=== PATIENT | female | born 1945 | race Hispanic/Latino ===

== ENCOUNTER 2017-02-03 19:29 | Observation (INO) | payer MEDICARE, BC ==
[2017-02-03 19:40] VITALS: BMI 23.9
--- NOTE | 2017-02-03 20:31 | ED PDOC ---
Arrival/HPI - General Chief Complaint: GI Problem Time Seen by Provider: 02/03/17 19:36 Historian: Patient - History of Present Illness Narrative History of Present Illness (Text): 02/03/17 19:40 Carlee Meyer is a 71 year old female, whose past medical history includes diabetes, hypothyroidism, colon cancer, colon resection, diverticulitis, and an appendectomy, who presents to the emergency department complaining of intermittent nausea, vomiting, diarrhea, and lower abdominal discomfort for 2 days. Patient states that her symptoms are similar to a previous episode of diverticulitis. Patient also states that she has a subjective fever and occasional chills. Patient indicates that she has a painful mass to her right hip which she has had for some time. Patient was told by her PMD that if pain in the mass persists, she would have to be evaluated further. Patient denies any history of trauma, back pain, chest pain, shortness of breath, or any other complaint at this time. PMD: Dr. Tanner Time/Duration: < week Symptom Onset: Gradual Symptom Course: Unchanged Severity Level: Mild Activities at Onset: Light Context: Home Past Medical History - Provider Review Nursing Documentation Reviewed: Yes - Infectious Disease Hx of Infectious Diseases: None - Reproductive Menopause: Yes - Cardiac Hx Pacemaker: No - Pulmonary Hx Respiratory Disorders: No - Neurological Hx Paralysis: No - HEENT Hx HEENT Disorder: Yes Hx Cataracts: Yes - Renal Hx Renal Disorder: No - Endocrine/Metabolic Hx Diabetes Mellitus Type 1: Yes Hx Hypothyroidism: Yes - Hematological/Oncological Hx Cancer: Yes (colon ca with partial colectomy) - Integumentary Hx Dermatological Disorder: No - Musculoskeletal/Rheumatological Hx Falls: No - Gastrointestinal Hx Diverticulitis: Yes Other/Comment: Colon CA - Genitourinary/Gynecological Hx Genitourinary Disorders: Yes Hx Urinary Tract Infection: Yes - Psychiatric Hx Emotional Abuse: No Hx Physical Abuse: No Hx Substance Use: No - Surgical History Hx Appendectomy: Yes Hx Cataract Extraction: Yes Hx Cholecystectomy: Yes Hx Joint Replacement: Yes (hip replacement) Other/Comment: Colonoscopy - Anesthesia Hx Anesthesia: Yes Hx Anesthesia Reactions: No Hx Malignant Hyperthermia: No - Suicidal Assessment Feels Threatened In Home Enviroment: No Family/Social History - Physician Review Nursing Documentation Reviewed: Yes Family/Social History: No Known Family HX Smoking Status: Light Smoker < 10 Cigarettes Daily Hx Alcohol Use: No Hx Substance Use: No Allergies/Home Meds Allergies/Adverse Reactions: Allergies moxifloxacin Allergy (Verified 03/05/16 19:56) ANAPHYLAXIS Home Medications: Home Meds Medication Instructions Recorded Confirmed Levothyroxine Sodium 0.05 mg PO QAM 09/25/14 02/03/17 Cholecalciferol (Vitamin D3) [Good 1 tab PO QWK 03/05/16 02/03/17 [facility] Vitamin Health D 90 mg] GlipiZIDE [Glucotrol] 5 mg PO BID 02/03/17 02/03/17 Insulin Detemir [Levemir] 15 unit SC DAILY 02/03/17 02/03/17 Metformin HCl [Glucophage] 1,000 mg PO BID 02/03/17 02/03/17 Promethazine HCl/Codeine 5 ml PO QID 02/03/17 02/03/17 [Prometh-Codein 6.25-10 mg/5 ml] Review of Systems - Physician Review All systems were reviewed & negative as marked: Yes - Review of Systems Constitutional: Fevers, Night Sweats Eyes: absent: Vision Changes ENT: absent: Hearing Changes Respiratory: absent: SOB, Cough Cardiovascular: absent: Chest Pain Gastrointestinal: Abdominal Pain (Lower abdominal pain), Diarrhea, Nausea, Vomiting Genitourinary Female: absent: Urine Output Changes Musculoskeletal: absent: Back Pain, Neck Pain Skin: absent: Rash, Pruritis Neurological: absent: Headache, Dizziness Endocrine: absent: Polyuria Hemo/Lymphatic: absent: Easy Bleeding Psychiatric: absent: Depression Physical Exam Vital Signs Reviewed: Yes Vital Signs Temp Pulse Resp BP Pulse Ox 02/03/17 20:30 99.1 F 02/03/17 19:30 97 H 16 137/82 98 Temperature: Afebrile Blood Pressure: Normal Pulse: Tachycardic Respiratory Rate: Normal Appearance: Positive for: Well-Appearing, Non-Toxic, Comfortable Pain Distress: None Mental Status: Positive for: Alert and Oriented X 3 - Systems Exam Head: Present: Atraumatic, Normocephalic Pupils: Present: PERRL Extroacular Muscles: Present: EOMI Conjunctiva: Present: Normal Mouth: Present: Moist Mucous Membranes Neck: Present: Normal Range of Motion Respiratory/Chest: Present: Clear to Auscultation, Good Air Exchange. No: Respiratory Distress, Accessory Muscle Use Cardiovascular: Present: Regular Rate and Rhythm, Normal S1, S2. No: Murmurs Abdomen: Present: Tenderness (Minimal tenderness to LLQ). No: Rebound, Guarding Back: Present: Normal Inspection Upper Extremity: Present: Normal ROM, Neurovascularly Intact Lower Extremity: Present: Normal ROM, Deformity (bony protuberance to Right hip with some questional palpable tenderness), Neurovascularly Intact Neurological: Present: GCS=15, CN II-XII Intact, Speech Normal Skin: Present: Other (No overlying skin erythema) Psychiatric: Present: Alert, Oriented x 3, Normal Insight, Normal Concentration Medical Decision Making ED Course and Treatment: 02/03/17 19:40 Impression: 71 year old female complaining of intermittent nausea, vomiting, diarrhea, and lower abdominal discomfort for 2 days. Plan: -- EKG -- Chest X-ray -- Abdomen and Pelvis CT w/ IV Contrast -- Right Hip CT w/o contrast -- Blood Culture -- Urine Culture and Urinalysis -- Labs -- Reassess and disposition Prior Visits: Notes and results from previous visits were reviewed. Patient last seen in the ED on 03/05/16 for 1 day duration of left lower abdominal pain. Patient was admitted to hospitalist for further evaluation. Progress Notes: 02/03/17 23:24 Reviewed radiology, CT Hip shows: 1. There has been little change from 03/05/2016. No interval soft tissue mass is identified. 2. Subcutaneous calcifications consistent with injection granulomata and mild subcutaneous edema lateral to the right hip. 3. Minimal sigmoid diverticulosis without diverticulitis. 4. Prosthetic left hip. CT Abdomen and Pelvis shows: 1. Resolution of proximal sigmoid diverticulitis since 03/05/2016. The remainder of the exam is similar. 2. Prosthetic left hip. 3. Status post cholecystectomy. 4. Status post right colectomy with ileocolic anastomosis in the proximal to mid transverse colon. 5. Minimal sigmoid diverticulosis without diverticulitis. 02/04/17 01:[address] Mirza, who is aware and agrees with plan. Accepts pt in to hospitalist service. Pt will go to [facility] observation for vomiting, diarrhea, abdominal pain, and leukocytosis. residential manager notified. - Lab Interpretations Lab Results: 02/03/17 20:16 02/03/17 20:16 Lab Results 02/03/17 21:39: Urine Color Yellow, Urine Appearance Clear, Urine pH 6.0, Ur Specific [place] >= 1.030, Urine Protein 100 H, Urine Glucose (UA) Negative, Urine Ketones Negative, Urine Blood Small H, Urine Nitrate Negative, Urine Bilirubin Negative, Urine Urobilinogen 0.2, Ur Leukocyte Esterase Negative, Urine RBC 1 - 3, Urine WBC 0 - 2, Ur Epithelial Cells 1 - 3 02/03/17 20:16: WBC 15.5 H D, RBC 5.25, Hgb 16.2 H, Hct 47.1, MCV 89.7, MCH 30.9 , MCHC 34.4, RDW 13.5, Plt Count 230, MPV 10.4 02/03/17 20:16: Sodium 139, Potassium 4.8, Chloride 96 L, Carbon Dioxide 30, Anion Gap 18, BUN 26 H, Creatinine 1.0, Est GFR ( Amer) > 60, Est GFR ( Non-Af Amer) 55, Random Glucose 154 H, Calcium 10.6 H, Total Bilirubin 0.9, AST 58 H, ALT 42, Alkaline Phosphatase 72, Total Protein 9.0 H, Albumin 5.0 H, Globulin 4.1, Albumin/Globulin Ratio 1.2, Lipase 481 H 02/03/17 20:16: PT 11.4, INR 1.06, APTT 23.5 L I have reviewed the lab results: Yes - RAD Interpretation Narrative RAD Interpretations (Text): 02/03/17 21:19 CXR- NO acute process CT Hip shows: Bones/joints: Prosthetic left hip in position. No fractures or destructive lesions. No dislocation. Soft tissues: Prominent subcutaneous calcifications in the right gluteal region. Mild subcutaneous edema lateral to the right hip. No soft tissue mass is seen. Bowel: Minimal sigmoid diverticulosis. No obstruction. No mucosal thickening. IMPRESSION: 1. There has been little change from 03/05/2016. No interval soft tissue mass is identified. 2. Subcutaneous calcifications consistent with injection granulomata and mild subcutaneous edema lateral to the right hip. 3. Minimal sigmoid diverticulosis without diverticulitis. 4. Prosthetic left hip. CT Abdomen and Pelvis shows: Lower thorax: Minimal bibasilar atelectasis or scar. ABDOMEN: Liver: Unremarkable. No mass. Gallbladder and bile ducts: Status post cholecystectomy. No ductal dilation. Pancreas: Unremarkable. No mass. No ductal dilation. Spleen: Unremarkable. No splenomegaly. Adrenals: Unremarkable. No mass. Kidneys and ureters: Unremarkable. No solid mass. No hydronephrosis. Stomach and bowel: Status post right colectomy with ileocolic anastomosis in the proximal to mid transverse colon. Minimal sigmoid diverticulosis without diverticulitis. No obstruction. Appendix: See above. PELVIS: Bladder: Unremarkable. No mass. Reproductive: Unremarkable as visualized. ABDOMEN and PELVIS: Intraperitoneal space: Unremarkable. No free air. No significant fluid collection. Bones/joints: Facet arthropathy of the lower lumbar spine. Prosthetic left hip. No acute fracture. No dislocation. Soft tissues: Subcutaneous calcifications consistent with injection granulomata in the gluteal regions. Vasculature: Unremarkable. No abdominal aortic aneurysm. Lymph nodes: Unremarkable. No enlarged lymph nodes. IMPRESSION: 1. Resolution of proximal sigmoid diverticulitis since 03/05/2016. The remainder of the exam is similar. 2. Prosthetic left hip. 3. Status post cholecystectomy. 4. Status post right colectomy with ileocolic anastomosis in the proximal to mid transverse colon. 5. Minimal sigmoid diverticulosis without diverticulitis. Radiology Orders: 02/03/17 20:06 ABD & PELVIS IV CONTRAST ONLY [CT] Stat 02/03/17 20:07 CHEST PORTABLE [RAD] Stat 02/03/17 20:10 HIP WITHOUT CONTRAST RIGHT [CT] Stat [place] Specialist: ED Physician, Radiologist - EKG Interpretation EKG Interpretation (Text): 02/03/17 21:20 EKG- NSR@ 93,NS T wave changes Interpreted by ED Physician: Yes Type: 12 lead EKG - Medication Orders Current Medication Orders: Discontinued Medications Famotidine (Pepcid) 20 mg IVP STAT STA Stop: 02/03/17 21:55 Last Admin: 02/03/17 22:13 Dose: 20 mg Sodium Chloride (Sodium Chloride 0.9%) 500 mls @ 500 mls/hr IV .Q1H STA Stop: 02/03/17 22:53 Last Admin: 02/03/17 22:14 Dose: 500 mls/hr Ceftriaxone Sodium (Rocephin 1 Gram Ivpb) 1 gm in 100 mls @ 200 mls/hr IV ONCE STA PRN Reason: Protocol Stop: 02/03/17 22:26 Last Admin: 02/03/17 22:13 Dose: 200 mls/hr Metronidazole (Flagyl) 500 mg in 100 mls @ 100 mls/hr IVPB STAT STA PRN Reason: Protocol Stop: 02/03/17 22:56 Last Admin: 02/03/17 23:35 Dose: 100 mls/hr Iohexol (Omnipaque 350 100 Ml) Confirm Administered Dose 350 mg .ROUTE .STK-MED ONE Stop: 02/03/17 22:45 Ondansetron HCl (Zofran Inj) 4 mg IVP ONCE ONE Stop: 02/03/17 21:55 Last Admin: 02/03/17 22:13 Dose: 4 mg Disposition/Present on Arrival - Present on Arrival Any Indicators Present on Arrival: No History of DVT/PE: No History of Uncontrolled Diabetes: No Urinary Catheter: No History of Decub. Ulcer: No History Surgical Site Infection Following: None - Disposition Have Diagnosis and Disposition been Completed?: Yes Diagnosis: Vomiting and diarrhea, Abdominal pain, Leukocytosis Disposition: HOSPITALIZED Disposition Time: 01:28 Patient Plan: Observation Patient Problems: Current Active Problems Problem Status Onset Abdominal pain Acute Leukocytosis Acute Vomiting and diarrhea Acute Condition: GOOD Referrals: Masood Tanner MD [Primary Care Provider] - Follow up with primary
[2017-02-03 20:34] LABS: HEMATOCRIT 47.1 % (36.0-48.0); MEAN CELL VOLUME 89.7 fL (80.0-105.0); MEAN CORPUSCULAR HEMOGLOBIN 30.9 pg (25.0-35.0); MEAN CORPUSCULAR HGB CONC 34.4 g/dl (31.0-37.0); MEAN PLATELET VOLUME 10.4 fl (7.0-11.0); RED CELL DISTRIBUTION WIDTH 13.5 % (11.5-14.5); WHITE BLOOD COUNT 15.5 10^3/ul (4.5-11.0)
[2017-02-03 20:47] LABS: ALB/GLOB RATIO 1.2 (1.1-1.8); ALKALINE PHOSPHATASE 72 U/L (38-133); ALT/SGPT 42 U/L (7-56); AST/SGOT 58 U/L (15-39); BILIRUBIN,TOTAL 0.9 mg/dL (0.2-1.3); BLOOD UREA NITROGEN 26 mg/dL (7-21); CALCIUM 10.6 mg/dL (8.4-10.5); CARBON DIOXIDE 30 mmol/L (21-33); CHLORIDE 96 mmol/L (98-107); GFR AFRICAN-AMERICAN > 60; GLUCOSE,RANDOM 154 mg/dL (70-110); LIPASE 481 U/L (23-300); POTASSIUM 4.8 mmol/L (3.6-5.0); SODIUM 139 mmol/L (132-148)
[2017-02-03 20:54] LABS: INR 1.06 (0.93-1.08); PARTIAL THROMBOPLASTIN TIME 23.5 Seconds (23.7-30.8)
[2017-02-03 21:51] LABS: URINE BILIRUBIN NEGATIVE (NEGATIVE); URINE BLOOD SMALL (NEGATIVE); URINE GLUCOSE (UA) NEGATIVE (NEGATIVE); URINE KETONE NEGATIVE (NEGATIVE); URINE LEUKOCYTE ESTERASE NEGATIVE Leu/uL (NEGATIVE); URINE PROTEIN 100 mg/dL (<30 mg/dL); URINE UROBILINOGEN 0.2 E.U./dL (<1 E.U./dL)
[2017-02-03] MEDS ORDERED: Sodium Chloride 0.9% 500 ML IV STA (21:54)
[2017-02-03] MEDS ORDERED: metroNIDAZOLE IV 500 mg/100 ml 500 MG/100 ML BAG IVPB STA (21:57)
[2017-02-03] MEDS ORDERED: cefTRIAXone 1 gm 1 GM/100 ML BAG IV STA (21:57)
[2017-02-03 22:02] LABS: URINE APPEARANCE CLEAR (CLEAR); URINE COLOR YELLOW (YELLOW)
[2017-02-03 22:10] LABS: URINE WBC 0 - 2 /hpf (0-6)
[2017-02-03] MEDS ORDERED: Iohexol 350 MG/100 ML VIAL ONE (22:44)
--- NOTE | 2017-02-04 01:51 | CP.PCM.HP ---
History of Present Illness - History of Present Illness History of Present Illness: CC: Nausea, vomiting and Diarrhea x 1 day HPI: 71 y/o female with a PMHx as listed below comes in to the ED with the complaint of nausea and nonbilious, nonbloody vomitus that began yesterday. She states this happened suddenly and was associated with a sharp stabbing pain around her umbilicus. She states her diarrhea is loose in caliber and yellow in appearance and she was having episodes of both diarrhea and vomiting concurrently. She mentions that she had a flare of diverticulitis about 2 weeks ago for which she was placed on po flagyl and augmentin, saw her GI doctor (Dr. Jimenez) and subsequently felt better. She also mentions having chills and and feeling lethargic today which prompted her to come in to the ED. She denies any complaints of chest pain, shortness of breath, dysuria, headache, light headedness or dizziness. She denies having anything out of the ordinary to eat recently, no recent travel or sick contacts. PMHx: Colon Ca s/p R hemicolectomy 2012 Hypothyroid DM Diverticulosis Allergies: Moxifloxacin - anaphylaxis Fam Hx: reviewed and noncontributory Soc Hx: 1/3ppd x 40yrs; denies etoh; lives at home next door to her sister Meds: recently completed a course of Flagyl 250mg po tid + Augmentin Synthroid 50mcg po daily Levemir 15u SQ hs Glucotrol 5mg po bid Present on Admission - Present on Admission Any Indicators Present on Admission: No Review of Systems - Review of Systems Review of Systems: As per HPI otherwise negative for a 10 point ROS Past Patient History - Infectious Disease Hx of Infectious Diseases: None - Past Social History Smoking Status: Light Smoker < 10 Cigarettes Daily Alcohol: None Drugs: Denies - CARDIAC Hx Pacemaker: No - PULMONARY Hx Respiratory Disorders: No - NEUROLOGICAL Hx Paralysis: No - HEENT Hx HEENT Problems: Yes Hx Cataracts: Yes - RENAL Hx Chronic Kidney Disease: No - ENDOCRINE/METABOLIC Hx Diabetes Mellitus Type 1: Yes Hx Hypothyroidism: Yes - HEMATOLOGICAL/ONCOLOGICAL Hx Cancer: Yes (colon ca with partial colectomy) - INTEGUMENTARY Hx Dermatological Problems: No - MUSCULOSKELETAL/RHEUMATOLOGICAL Hx Falls: No - GASTROINTESTINAL Hx Diverticulitis: Yes Other/Comment: Colon CA - GENITOURINARY/GYNECOLOGICAL Hx Genitourinary Disorders: Yes Hx Urinary Tract Infection: Yes - PSYCHIATRIC Hx Emotional Abuse: No Hx Physical Abuse: No Hx Substance Use: No - SURGICAL HISTORY Hx Appendectomy: Yes Hx Cataract Extraction: Yes Hx Cholecystectomy: Yes Hx Joint Replacement: Yes (hip replacement) Other/Comment: Colonoscopy - ANESTHESIA Hx Anesthesia: Yes Hx Anesthesia Reactions: No Hx Malignant Hyperthermia: No Meds Allergies/Adverse Reactions: Allergies Allergy/AdvReac Type Severity Reaction Status Date / Time moxifloxacin Allergy ANAPHYLAXIS Verified 03/05/16 19:56 Physical Exam - Constitutional Appears: Non-toxic, No Acute Distress - Head Exam Head Exam: ATRAUMATIC, NORMOCEPHALIC - Eye Exam Eye Exam: Normal appearance - ENT Exam ENT Exam: Mucous Membranes Dry - Respiratory Exam Respiratory Exam: Clear to Auscultation Bilateral, NORMAL BREATHING PATTERN. absent: Rales, Rhonchi, Wheezes - Cardiovascular Exam Cardiovascular Exam: REGULAR RHYTHM, +S1, +S2 - GI/Abdominal Exam GI & Abdominal Exam: Normal Bowel Sounds, Soft. absent: Guarding, Rebound, Tenderness Additional comments: old healed midline surgical scar - Rectal Exam Rectal Exam: Deferred - Extremities Exam Extremities exam: Positive for: normal inspection. Negative for: calf tenderness - Neurological Exam Neurological exam: Alert, Oriented x3 - Psychiatric Exam Psychiatric exam: Normal Affect, Normal Mood - Skin Skin Exam: Dry, Intact, Normal Color, Warm Results - Vital Signs Recent Vital Signs: Last Vital Signs Temp 99.1 F 02/03/17 20:30 Pulse 97 H 02/03/17 19:30 Resp 16 02/03/17 19:30 BP 137/82 02/03/17 19:30 Pulse Ox 98 02/03/17 19:30 - Labs Result Diagrams: 02/03/17 20:16 02/03/17 20:16 Labs: Laboratory Results - last 24 hr 02/03/17 02/03/17 02/03/17 20:16 20:16 20:16 WBC 15.5 H D RBC 5.25 Hgb 16.2 H Hct 47.1 MCV 89.7 MCH 30.9 MCHC 34.4 RDW 13.5 Plt Count 230 MPV 10.4 PT 11.4 INR 1.06 APTT 23.5 L Sodium 139 Potassium 4.8 Chloride 96 L Carbon Dioxide 30 Anion Gap 18 BUN 26 H Creatinine 1.0 Est GFR ( Amer) > 60 Est GFR (Non-Af Amer) 55 Random Glucose 154 H Calcium 10.6 H Total Bilirubin 0.9 AST 58 H ALT 42 Alkaline Phosphatase 72 Total Protein 9.0 H Albumin 5.0 H Globulin 4.1 Albumin/Globulin Ratio 1.2 Lipase 481 H Urine Color Urine Appearance Urine pH Ur Specific [place] Urine Protein Urine Glucose (UA) Urine Ketones Urine Blood Urine Nitrate Urine Bilirubin Urine Urobilinogen Ur Leukocyte Esterase Urine RBC Urine WBC Ur Epithelial Cells 02/03/17 21:39 WBC RBC Hgb Hct MCV MCH MCHC RDW Plt Count MPV PT INR APTT Sodium Potassium Chloride Carbon Dioxide Anion Gap BUN Creatinine Est GFR ( Amer) Est GFR (Non-Af Amer) Random Glucose Calcium Total Bilirubin AST ALT Alkaline Phosphatase Total Protein Albumin Globulin Albumin/Globulin Ratio Lipase Urine Color Yellow Urine Appearance Clear Urine pH 6.0 Ur Specific [place] >= 1.030 Urine Protein 100 H Urine Glucose (UA) Negative Urine Ketones Negative Urine Blood Small H Urine Nitrate Negative Urine Bilirubin Negative Urine Urobilinogen 0.2 Ur Leukocyte Esterase Negative Urine RBC 1 - 3 Urine WBC 0 - 2 Ur Epithelial Cells 1 - 3 - Imaging and Cardiology CT scan - abdomen Status: Report reviewed by me (diverticulosis without diverticulitis; chronic post op changes; right hip granuloma (unchanged since 02/2016)) Assessment & Plan - Assessment and Plan (Free Text) Assessment: 71 y/o female with a PMHx Colon Ca s/p hemicolectomy, DM, hypothyroid and diverticulosis presents to the ED with a 1 day history of nausea, vomiting, diarrhea, abdominal pain and chills. She will be placed on observation for likely gastroenteritis. Plan: 1) Gastroenteritis - will keep her NPO overnight; liquid diet in the AM; IVF @ 100cc/hr; zofran prn nausea/vomiting; GI consult with Dr. Jimenez given her multiple comorbidities (Diverticulosis + recent flare + h/o right hemicolectomy with anastamoses). Currently has an elevated WBC count; will check procalcitonin level and hold off on IV Abx unless she spikes a temp or demonstrates further signs of a possible bacterial infection; monitor blood cultures x 2; urinalysis is negative thus far 2) DM - will cut her dose of levemir and give 5mg HS; ISS + FSBS achs 3) Hypothyroid - will c/w synthroid 4) DVT ppx - Lovenox SQ daily
[2017-02-04] MEDS ORDERED: Insulin Detemir 100 units/ml Vial (Levemir) SC ONE (01:54)
[2017-02-04] MEDS: Sodium Chloride 0.9% 1,000 ML IV SCH ×3 (02:27→23:15)
[2017-02-04 07:29] LABS: ADD MANUAL DIFF? NO
[2017-02-04 07:34] LABS: BASO # 0.01 K/mm3 (0.0-2.0); BASO % 0.1 % (0.0-3.0); EOS # 0.2 (0.0-0.7); GRAN # 6.47 (1.4-6.5); GRAN % 70.5 % (50.0-68.0); HEMATOCRIT 37.5 % (36.0-48.0); LYMPH # 1.7 (1.2-3.4); LYMPH % 18.7 % (22.0-35.0); MEAN CELL VOLUME 90.1 fL (80.0-105.0); MEAN CORPUSCULAR HEMOGLOBIN 29.8 pg (25.0-35.0); MEAN CORPUSCULAR HGB CONC 33.1 g/dl (31.0-37.0); MEAN PLATELET VOLUME 10.2 fl (7.0-11.0); MONO # 0.8 (0.1-0.6); MONO % 8.7 % (1.0-6.0); PLATELET COUNT 198 10^3/uL (120.0-450.0); RED CELL DISTRIBUTION WIDTH 13.7 % (11.5-14.5); WHITE BLOOD COUNT 9.2 10^3/ul (4.5-11.0)
[2017-02-04 07:42] LABS: ALB/GLOB RATIO 1.2 (1.1-1.8); ALKALINE PHOSPHATASE 47 U/L (38-133); ALT/SGPT 35 U/L (7-56); AST/SGOT 34 U/L (15-39); BILIRUBIN,TOTAL 0.8 mg/dL (0.2-1.3); BLOOD UREA NITROGEN 23 mg/dL (7-21); CALCIUM 8.9 mg/dL (8.4-10.5); CARBON DIOXIDE 26 mmol/L (21-33); CHLORIDE 105 mmol/L (95-110); GFR AFRICAN-AMERICAN > 60; GLUCOSE,RANDOM 105 mg/dL (70-110); POTASSIUM 4.6 mmol/L (3.6-5.0); SODIUM 139 mmol/L (132-148); TOTAL PROTEIN 6.4 g/dL (5.8-8.3)
[2017-02-04] MEDS: Insulin Reg-LOW-Coverage SC SCH ×4 (08:26→22:26)
[2017-02-04 08:27] VITALS: RESP 18
--- NOTE | 2017-02-04 08:27 | RAD ---
HISTORY: vomiting COMPARISON: 07/29/2015 FINDINGS: LUNGS: Mild left basilar atelectasis PLEURA: No significant pleural effusion identified, no pneumothorax apparent. CARDIOVASCULAR: Normal. OSSEOUS STRUCTURES: No significant abnormalities. VISUALIZED UPPER ABDOMEN: Normal. OTHER FINDINGS: None. IMPRESSION: Mild left basilar atelectasis.
--- NOTE | 2017-02-04 10:27 | CT ---
PROCEDURE: CT Abdomen and Pelvis with contrast HISTORY: Abdominal pain COMPARISON: 03/05/2016 and 08/06/2026 TECHNIQUE: CT scan of the abdomen and pelvis was performed after intravenous administration of contrast. Oral contrast was not administered. Coronal and sagittal reformatted images were obtained. Contrast dose: 100 mL Omnipaque 350 Radiation dose: Total exam DLP = 348.90 mGy-cm. This CT exam was performed using one or more of the following dose reduction techniques: Automated exposure control, adjustment of the mA and/or kV according to patient size, and/or use of iterative reconstruction technique. FINDINGS: LOWER THORAX: There is bibasilar subsegmental atelectasis. LIVER: The liver is normal in size and there is homogeneous enhancement. There is fatty infiltration in the liver. No intrahepatic biliary ductal dilatation. GALLBLADDER AND BILE DUCTS: Surgically absent. PANCREAS: The pancreas is normal in size and there is homogeneous enhancement without focal mass or ductal dilatation. SPLEEN: The spleen is normal in size without focal mass. ADRENALS: Both adrenal glands are normal in size without discrete nodule. KIDNEYS AND URETERS: Both kidneys are normal in size and there is homogeneous enhancement without hydronephrosis or focal mass. 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 VASCULATURE: There are advanced atherosclerotic aortoiliac calcifications. No aortic aneurysm. BOWEL: The small bowel loops are normal in caliber. Status post right hemicolectomy and ileotransverse anastomosis. There is fluid in the remaining colon. No evidence of bowel dilatation or obstruction. There is mild sigmoid diverticulosis without CT evidence for acute diverticulitis. PERITONEUM: No free fluid. No free air. LYMPH NODES: No enlarged lymph nodes. BLADDER: Normal. REPRODUCTIVE: The uterus is normal in size. BONES: No acute fracture. There is mild levoscoliosis in the lumbar spine and multilevel degenerative changes. Status post left hip arthroplasty. OTHER FINDINGS: Peter ectopic ossifications/ calcifications in bilateral gluteal regions. IMPRESSION: No acute findings. Hepatic steatosis. Additional comments as described above. A preliminary report was provided by [employer].
--- NOTE | 2017-02-04 10:30 | CT ---
PROCEDURE: CT right hip dated 10/06/2016. HISTORY: painful mass COMPARISON: Comparison made with PET-CT scan the entire body dated 09/11/2016 TECHNIQUE: Contiguous axial images of the right hip were obtained. Coronal and sagittal reformats were generated. This CT exam was performed using one or more of the following dose reduction techniques: Automated exposure control, adjustment of the mA and/or kV according to patient size, and/or use of iterative reconstruction technique. Radiation dose. Total DLP = 208.83 mGy-cm. FINDINGS: BONES: The current study reveals no evidence of acute displaced fracture nor dislocation. The osseous structures appear intact. There are no cortical destructive changes. The right femoral head is appropriately located within the right acetabulum. Degenerative changes right hip joint with minor joint space narrowing more so along the posterior joint margin and mild subchondral sclerosis. Re- demonstrated are 2 round/elliptical shaped small areas of sclerosis within the acetabulum that appear unchanged from prior study. Findings most likely represent small bone islands or osteomas. RIGHT HIP JOINT: Minor degenerative changes right hip as described Prostatic left hip. SOFT TISSUES: There are soft tissue calcifications within the subcutaneous tissues of the glue regions bilaterally again noted left-sided which is seen on the frontal contact center representative film. Smaller calcifications overlying the the lateral subcutaneous tissues left hip joint. There may be some mild on subcutaneous edema overlying the right hip Note made of diverticulosis however no large obvious radiographic evidence of acute diverticulitis. IMPRESSION: No evidence of obvious soft tissue mass however subcutaneous calcifications again noted essentially unchanged. . . Follow-up PET scan could be performed next month which would be a six-month follow-up from prior PET-CT scan dated 09/11/2016. There may also be some mild subcutaneous edema overlying the right hip joint. Small sclerotic foci at right acetabulum may represent bone islands or osteomas the essentially unchanged from prior study. Minor DJD right hip.
[2017-02-04] MEDS: Levothyroxine 50 MCG TAB PO SCH (10:51)
--- NOTE | 2017-02-04 22:17 | CON ---
DATE: 02/04/2017 SUBJECTIVE: This patient was seen and evaluated earlier. This 71-year-old patient with a history of colon cancer, status post extended right hemicolectomy, presented with acute onset of cramping abdom inal pain across the periumbilical area. Previous to that, the patient did have some episodes of low er abdominal discomfort and this patient was recently seen in the hospital complaining of some loose bowel movements, some discomfort in the left lower quadrant. The patient was given medication for Fl agyl 250 mg to be taken 4 times a day. She was doing well until then she had recurrence of the cramp ing abdominal discomfort the right upper umbilical area noticed. Presented to the Emergency Ro om. Also, episodes of vomiting. PAST MEDICAL HISTORY: Significant for colon cancer, status post hemicolectomy, diabetes mellitus, hy pothyroidism, diverticulosis. ALLERGIES: ALLERGIC TO MOXIFLOXACIN. FAMILY HISTORY: Sister has colon carcinoma of the anus. SOCIAL HISTORY: Positive for smoking 1/3 pack per day for nearly 40 years. Denies alcohol use. REVIEW OF SYSTEMS: Positive as above. Other systems negative. PHYSICAL EXAMINATION: GENERAL: The patient is lying on the bed, not in acute distress. VITAL SIGNS: Temperature is 97.9, pulse is 76, blood pressure is 129/70, respirations 18 and O2 sat is 97%. HEENT: Atraumatic, anicteric. NECK: Supple. HEART: S1, S2 heard. LUNGS: Bilateral air entry present. ABDOMEN: Soft. There is no mass palpable. No tenderness. EXTREMITIES: No cyanosis, no clubbing. NEUROLOGIC: Alert, oriented. Moves all the extremities. LABORATORY DATA: Hemoglobin 12.4, hematocrit 37.5, WBC is 9.2, platelets 198. AST , ALT 42, ca lcium 10.6, alkaline phosphatase 72, lipase 41. CT scan of the abdomen and pelvis was reviewed. IMPRESSION: This 71-year-old patient with a history of colon cancer, status post right hemicolectomy presented initially with abdominal pain and diarrhea. The patient was, as an outpatient, treated wi the Flagyl. for complaints of pain in the left lower quadrant area. Now, the patient compl ains of cramping discomfort in the mid abdominal area. The differential diagnosis should include par tial small bowel obstruction versus gastroenteritis. There are a few loops of prominent small bowel loops seen, but no obvious obstructive pattern noticed. The other differential diagnosis for nausea should also include peptic ulcer disease, erosive esophagitis. RECOMMENDATION: 1. To continue the clear liquid diet. 2. Stool for culture. 3. Stool for Clostridium difficile. 4. We will slowly advance the diet. Thank you very much for allowing us to participate in the care of the patient. Will continue to clos radha follow up her care and suggest further management based on the clinical course. Lara Jimenez MD cc: [id number] TT: 02/04/2017 22:17:01 Confirmation # [id number] Dictation # [id number] mn
--- NOTE | 2017-02-04 22:48 | CARD ---
APPROVED REPORT EKG Measurement Heart [id number] <Conclusion> Normal sinus rhythm T wave abnormality, consider lateral ischemia Abnormal ECG
[2017-02-05] MEDS: Insulin Reg-LOW-Coverage SC SCH (08:16)
[2017-02-05] MEDS: Sodium Chloride 0.9% 1,000 ML IV SCH (08:30)
[2017-02-05 08:51] VITALS: BP 118/65; PULSE 55; TEMP 98.4; O2SAT 96
[2017-02-05] MEDS ORDERED: Pantoprazole 20 mg EC Tab PO SCH (10:00)
[2017-02-05] MEDS: Levothyroxine 50 MCG TAB PO SCH (10:07)
[2017-02-05 11:20] LABS: ALB/GLOB RATIO 1.2 (1.1-1.8); ALKALINE PHOSPHATASE 46 U/L (38-133); ALT/SGPT 38 U/L (7-56); AST/SGOT 46 U/L (15-39); BILIRUBIN,TOTAL 0.7 mg/dL (0.2-1.3); BLOOD UREA NITROGEN 17 mg/dL (7-21); CALCIUM 8.7 mg/dL (8.4-10.5); CARBON DIOXIDE 24 mmol/L (21-33); CHLORIDE 105 mmol/L (98-107); GFR AFRICAN-AMERICAN > 60; GLUCOSE,RANDOM 137 mg/dL (70-110); LIPASE 111 U/L (23-300); SODIUM 136 mmol/L (132-148); TOTAL PROTEIN 6.7 g/dL (5.8-8.3)
[2017-02-05 11:28] LABS: HEMATOCRIT 37.5 % (36.0-48.0); MEAN CORPUSCULAR HEMOGLOBIN 29.6 pg (25.0-35.0); MEAN CORPUSCULAR HGB CONC 32.5 g/dl (31.0-37.0); MEAN PLATELET VOLUME 10.3 fl (7.0-11.0); RED CELL DISTRIBUTION WIDTH 13.7 % (11.5-14.5); WHITE BLOOD COUNT 7.6 10^3/ul (4.5-11.0)
--- NOTE | 2017-02-05 11:37 | CP.PCM.DIS ---
<Teresita Camarena - Last Filed: 02/05/17 11:33> Provider - Provider Date of Admission: 02/04/17 01:29 Attending physician: Janes Navarro MD Primary care physician: Masood Tanner MD Consults: GI: Dr. Jimenez Time Spent in preparation of Discharge (in minutes): 45 Diagnosis - Discharge Diagnosis (1) Abdominal pain Status: Acute (2) Vomiting and diarrhea Status: Acute Hospital Course - Lab Results Lab Results: Micro Results 02/04/17 13:00 Stool C. difficile Antigen & Toxin A,B (M - Final Most Recent Lab Values WBC 7.6 10^3/ul (4.5-11.0) 02/05/17 11:00 RBC 4.12 10^6/uL (3.5-6.1) 02/05/17 11:00 Hgb 12.2 gm/dL (12.0-16.0) 02/05/17 11:00 Hct 37.5 % (36.0-48.0) 02/05/17 11:00 MCV 91.0 fL (80.0-105.0) 02/05/17 11:00 MCH 29.6 pg (25.0-35.0) 02/05/17 11:00 MCHC 32.5 g/dl (31.0-37.0) 02/05/17 11:00 RDW 13.7 % (11.5-14.5) 02/05/17 11:00 Plt Count 193 10^3/uL (120.0-450.0) 02/05/17 11:00 MPV 10.3 fl (7.0-11.0) 02/05/17 11:00 Gran % 70.5 % (50.0-68.0) H 02/04/17 07:10 Lymph % (Auto) 18.7 % (22.0-35.0) L 02/04/17 07:10 Reagan % (Auto) 8.7 % (1.0-6.0) H 02/04/17 07:10 Eos % (Auto) 2.0 % (1.5-5.0) 02/04/17 07:10 Baso % (Auto) 0.1 % (0.0-3.0) 02/04/17 07:10 Gran # 6.47 (1.4-6.5) 02/04/17 07:10 Lymph # 1.7 (1.2-3.4) 02/04/17 07:10 Reagan # 0.8 (0.1-0.6) H 02/04/17 07:10 Eos # 0.2 (0.0-0.7) 02/04/17 07:10 Baso # 0.01 K/mm3 (0.0-2.0) 02/04/17 07:10 PT 11.4 Seconds (9.9-11.8) 02/03/17 20:16 INR 1.06 (0.93-1.08) 02/03/17 20:16 APTT 23.5 Seconds (23.7-30.8) L 02/03/17 20:16 Sodium 136 mmol/L (132-148) 02/05/17 11:00 Potassium 4.0 mmol/L (3.6-5.0) 02/05/17 11:00 Chloride 105 mmol/L (98-107) 02/05/17 11:00 Carbon Dioxide 24 mmol/L (21-33) 02/05/17 11:00 Anion Gap 11 (10-20) 02/05/17 11:00 BUN 17 mg/dL (7-21) 02/05/17 11:00 Creatinine 0.9 mg/dL (0.5-1.4) 02/05/17 11:00 Est GFR ( Amer) > 60 02/05/17 11:00 Est GFR (Non-Af Amer) > 60 02/05/17 11:00 POC Glucose (mg/dL) 142 mg/dL (65-110) H 02/05/17 11:05 Random Glucose 137 mg/dL (70-110) H 02/05/17 11:00 Calcium 8.7 mg/dL (8.4-10.5) 02/05/17 11:00 Total Bilirubin 0.7 mg/dL (0.2-1.3) 02/05/17 11:00 AST 46 U/L (15-39) H 02/05/17 11:00 ALT 38 U/L (7-56) 02/05/17 11:00 Alkaline Phosphatase 46 U/L (38-133) 02/05/17 11:00 Total Protein 6.7 g/dL (5.8-8.3) 02/05/17 11:00 Albumin 3.6 g/dL (3.0-4.8) 02/05/17 11:00 Globulin 3.1 gm/dL 02/05/17 11:00 Albumin/Globulin Ratio 1.2 (1.1-1.8) 02/05/17 11:00 Lipase 111 U/L (23-300) 02/05/17 11:00 Urine Color Yellow (YELLOW) 02/03/17 21:39 Urine Appearance Clear (CLEAR) 02/03/17 21:39 Urine pH 6.0 (4.7-8.0) 02/03/17 21:39 Ur Specific [place] >= 1.030 (1.005-1.035) 02/03/17 21:39 Urine Protein 100 mg/dL (<30 mg/dL) H 02/03/17 21:39 Urine Glucose (UA) Negative mg/dL (NEGATIVE) 02/03/17 21:39 Urine Ketones Negative mg/dL (NEGATIVE) 02/03/17 21:39 Urine Blood Small (NEGATIVE) H 02/03/17 21:39 Urine Nitrate Negative (NEGATIVE) 02/03/17 21:39 Urine Bilirubin Negative (NEGATIVE) 02/03/17 21:39 Urine Urobilinogen 0.2 E.U./dL (<1 E.U./dL) 02/03/17 21:39 Ur Leukocyte Esterase Negative Cathie/uL (NEGATIVE) 02/03/17 21:39 Urine RBC 1 - 3 /hpf (0-2) 02/03/17 21:39 Urine WBC 0 - 2 /hpf (0-6) 02/03/17 21:39 Ur Epithelial Cells 1 - 3 /hpf (0-5) 02/03/17 21:39 - Hospital Course Hospital Course: 71 year old female with past medical history of Colon Ca s/p R hemicolectomy in 2011, hypothyroid, DM, and diverticulosis was admitted to hospital for abdominal pain diarrhea and vomiting likely secondary to gastroenteritis. Abdominal CT on admission showed no acute findings. LFTs were WNL on admission. Lipase was elevated on admission but returned to normal. Blood, urine and stool cultures and c diff stool antigen were negative. Patient's diet was slowly advanced. Patient also complained of right hip pain on admission. CT of hip showed no changes from previous study (please see report for full details). Patient's symptoms improved and she was discharged. - Date & Time of H&P Date of H&P: 02/05/17 Time of H&P: 11:35 Discharge Exam - Head Exam Head Exam: ATRAUMATIC, NORMOCEPHALIC - Eye Exam Eye Exam: EOMI - ENT Exam ENT Exam: Mucous Membranes Moist - Respiratory Exam Respiratory Exam: Clear to PA & Lateral, NORMAL BREATHING PATTERN. absent: Rales, Rhonchi, Wheezes - Cardiovascular Exam Cardiovascular Exam: REGULAR RHYTHM, +S1, +S2. absent: Diastolic murmur, Gallop , Rubs, Systolic Murmur - GI/Abdominal Exam GI & Abdominal Exam: Normal Bowel Sounds, Soft, Unremarkable. absent: Distended , Firm, Guarding, Rigid - Extremities Exam Additional comments: no pedal edema or tenderness - Neurological Exam Neurological exam: Alert, Oriented x3 - Psychiatric Exam Psychiatric exam: Normal Affect, Normal Mood - Skin Skin Exam: Dry, Intact, Normal Color, Warm Discharge Plan - Follow Up Plan Condition: GOOD Disposition: HOME/ ROUTINE Instructions: Diverticulitis (DC), Gastroenteritis (DC), Acute Nausea and Vomiting (DC), Leukocytosis (DC) Additional Instructions: Patient is to follow up with PMD, Dr. Tanner upon discharge. Follow up with Dr. jimenez in 1 week. Follow up with DR. Villarreal for colon cancer follow up. Patient is to resume her home medications. Referrals: Masood Tanner MD [Primary Care Provider] - <Janes Navarro - Last Filed: 02/06/17 14:43> Provider - Provider Date of Admission: 02/04/17 01:29 Attending physician: Janes Navarro MD Primary care physician: Masood Tanner MD Hospital Course - Lab Results Lab Results: Micro Results 02/04/17 13:00 Stool Stool Culture - Final NO SALMONELLA, SHIGELLA OR CAMPYLOBACTER ISOLATED. 02/04/17 13:00 Stool C. difficile Antigen & Toxin A,B (M - Final Most Recent Lab Values WBC 7.6 10^3/ul (4.5-11.0) 02/05/17 11:00 RBC 4.12 10^6/uL (3.5-6.1) 02/05/17 11:00 Hgb 12.2 gm/dL (12.0-16.0) 02/05/17 11:00 Hct 37.5 % (36.0-48.0) 02/05/17 11:00 MCV 91.0 fL (80.0-105.0) 02/05/17 11:00 MCH 29.6 pg (25.0-35.0) 02/05/17 11:00 MCHC 32.5 g/dl (31.0-37.0) 02/05/17 11:00 RDW 13.7 % (11.5-14.5) 02/05/17 11:00 Plt Count 193 10^3/uL (120.0-450.0) 02/05/17 11:00 MPV 10.3 fl (7.0-11.0) 02/05/17 11:00 Gran % 70.5 % (50.0-68.0) H 02/04/17 07:10 Lymph % (Auto) 18.7 % (22.0-35.0) L 02/04/17 07:10 Reagan % (Auto) 8.7 % (1.0-6.0) H 02/04/17 07:10 Eos % (Auto) 2.0 % (1.5-5.0) 02/04/17 07:10 Baso % (Auto) 0.1 % (0.0-3.0) 02/04/17 07:10 Gran # 6.47 (1.4-6.5) 02/04/17 07:10 Lymph # 1.7 (1.2-3.4) 02/04/17 07:10 Reagan # 0.8 (0.1-0.6) H 02/04/17 07:10 Eos # 0.2 (0.0-0.7) 02/04/17 07:10 Baso # 0.01 K/mm3 (0.0-2.0) 02/04/17 07:10 PT 11.4 Seconds (9.9-11.8) 02/03/17 20:16 INR 1.06 (0.93-1.08) 02/03/17 20:16 APTT 23.5 Seconds (23.7-30.8) L 02/03/17 20:16 Sodium 136 mmol/L (132-148) 02/05/17 11:00 Potassium 4.0 mmol/L (3.6-5.0) 02/05/17 11:00 Chloride 105 mmol/L (98-107) 02/05/17 11:00 Carbon Dioxide 24 mmol/L (21-33) 02/05/17 11:00 Anion Gap 11 (10-20) 02/05/17 11:00 BUN 17 mg/dL (7-21) 02/05/17 11:00 Creatinine 0.9 mg/dL (0.5-1.4) 02/05/17 11:00 Est GFR ( Amer) > 60 02/05/17 11:00 Est GFR (Non-Af Amer) > 60 02/05/17 11:00 POC Glucose (mg/dL) 142 mg/dL (65-110) H 02/05/17 11:05 Random Glucose 137 mg/dL (70-110) H 02/05/17 11:00 Calcium 8.7 mg/dL (8.4-10.5) 02/05/17 11:00 Total Bilirubin 0.7 mg/dL (0.2-1.3) 02/05/17 11:00 AST 46 U/L (15-39) H 02/05/17 11:00 ALT 38 U/L (7-56) 02/05/17 11:00 Alkaline Phosphatase 46 U/L (38-133) 02/05/17 11:00 Total Protein 6.7 g/dL (5.8-8.3) 02/05/17 11:00 Albumin 3.6 g/dL (3.0-4.8) 02/05/17 11:00 Globulin 3.1 gm/dL 02/05/17 11:00 Albumin/Globulin Ratio 1.2 (1.1-1.8) 02/05/17 11:00 Lipase 111 U/L (23-300) 02/05/17 11:00 Urine Color Yellow (YELLOW) 02/03/17 21:39 Urine Appearance Clear (CLEAR) 02/03/17 21:39 Urine pH 6.0 (4.7-8.0) 02/03/17 21:39 Ur Specific [place] >= 1.030 (1.005-1.035) 02/03/17 21:39 Urine Protein 100 mg/dL (<30 mg/dL) H 02/03/17 21:39 Urine Glucose (UA) Negative mg/dL (NEGATIVE) 02/03/17 21:39 Urine Ketones Negative mg/dL (NEGATIVE) 02/03/17 21:39 Urine Blood Small (NEGATIVE) H 02/03/17 21:39 Urine Nitrate Negative (NEGATIVE) 02/03/17 21:39 Urine Bilirubin Negative (NEGATIVE) 02/03/17 21:39 Urine Urobilinogen 0.2 E.U./dL (<1 E.U./dL) 02/03/17 21:39 Ur Leukocyte Esterase Negative Cathie/uL (NEGATIVE) 02/03/17 21:39 Urine RBC 1 - 3 /hpf (0-2) 02/03/17 21:39 Urine WBC 0 - 2 /hpf (0-6) 02/03/17 21:39 Ur Epithelial Cells 1 - 3 /hpf (0-5) 02/03/17 21:39 Attending/Attestation - Attestation I have personally seen and examined this patient.: Yes I have fully participated in the care of the patient.: Yes I have reviewed all pertinent clinical information, including history, physical exam and plan: Yes Notes (Text): 02/06/17 14:40 attending note; Patient seen and examined With the resident. Patient is a 71 year old female with a PMHx Colon Ca s/p hemicolectomy, DM, hypothyroid and diverticulosis presents to the ED with a 1 day history of nausea , vomiting, diarrhea, abdominal pain and chills. Patient was admitted and treated with IV Fluids. started on clear liquid diet and advance to soft diet. Diarrhea resolved. C. difficile negative. GI evaluation with Dr. Benito appreciated. Patient will follow-up with PMD . Patient will follow-up oncology Dr. Villarreal for colon cancer treatment follow- up. Patient will follow-up with Dr. Benito. Diagnosis; Abdominal pain Diarrhea History of colon cancer Diverticulosis
--- NOTE | 2017-02-05 12:46 | PN ---
DATE: 02/05/2017 The patient was seen and examined at the bedside earlier today. The patient with no new complaints. Wants to go home. Denies any diarrhea. No reports of overt GI bleed. VITAL SIGNS: Temperature 98.4, blood pressure is 118/65, pulse 55, respirations 18, 96 on room air. LABORATORY DATA: The patient did have stool for C. diff and that was negative antigen and toxin. PHYSICAL EXAMINATION: HEENT: Sclerae are anicteric. NECK: Supple. CARDIAC: S1, S2. LUNGS: With good air entry, no rales or wheeze. ABDOMEN: With bowel sounds, soft, nontender. No rebound or guarding. EXTREMITIES: No edema. ASSESSMENT: This is a 71-year-old female with a history of colon cancer and status post right hemico lectomy, came in with abdominal pain and diarrhea. The patient was complaining of pain on the left l ower quadrant, was given outpatient treatment of Flagyl. The patient did have CT scan of abdomen and pelvis done, which was negative for any obstructive disease. Did show few loops of prominent small bowel. She is not having any more diarrhea. Stool for Clostridium difficile was negative. PLAN: The patient's diet has been advanced to heart healthy diet. Continue PPI. The patient's stoo l culture is pending. We can follow that up outpatient. The patient wants to go home. She is clini carmen improved, can follow up in our outpatient office. Discussed with Dr. Navarro. The patient w as seen and case discussed with Dr. Jimenez. Marcy MONDRAGON cc: [id number] TT: 02/05/2017 12:45:55 Confirmation # [id number] Dictation # [id number] ana maría
== END 2017-02-05 13:44 | disposition home or self-care (01) ==
LOC: ED 19:29 → ERH 02-04 01:29 → 5RSO 02-04 03:49
PROVIDERS: ADMIT Internal Medicine; ATTEND Internal Medicine
DX: R10.32 Left lower quadrant pain (principal); R19.7 Diarrhea, unspecified; R11.2 Nausea with vomiting, unspecified; Z85.038 Personal history of other malignant neoplasm of large intestine; E03.9 Hypothyroidism, unspecified; E11.9 Type 2 diabetes mellitus without complications; K57.30 Diverticulosis of large intestine without perforation or abscess without bleeding; Z90.49 Acquired absence of other specified parts of digestive tract; Z80.0 Family history of malignant neoplasm of digestive organs; M25.551 Pain in right hip
CPT/HCPCS: 36415; 71010; 73700; 74177; 80053; 81001; 82948; 83690; 85025; 85027; 85610; 85730; 87040; 87045; 87086; 87324; 93005; 96374; 96375; 99285; G0378; J0696; J2405; J7040; Q9967

== ENCOUNTER 2017-04-14 11:01 | Day surgery (SDC) | payer MEDICARE, BC ==
[2017-04-06 13:02] VITALS: BMI 23.7
[2017-04-14] MEDS ORDERED: Propofol 10 mg/ml Inj (20 ML) ONE (13:11)
[2017-04-14] MEDS ORDERED: Sodium Chloride 0.9% 1,000 ML IV SCH (14:30)
[2017-04-14 15:24] VITALS: BP 140/74; PULSE 68; RESP 14; TEMP 98; O2SAT 100
== END 2017-04-14 16:04 | disposition home or self-care (01) ==
LOC: ENDO 11:01
PROVIDERS: ATTEND Internal Medicine Gastroenterology
DX: Z12.11 Encounter for screening for malignant neoplasm of colon (principal); K62.1 Rectal polyp; K25.9 Gastric ulcer, unspecified as acute or chronic, without hemorrhage or perforation; K57.30 Diverticulosis of large intestine without perforation or abscess without bleeding; K29.50 Unspecified chronic gastritis without bleeding; K64.8 Other hemorrhoids; Z98.0 Intestinal bypass and anastomosis status; E11.9 Type 2 diabetes mellitus without complications; Z79.84 Long term (current) use of oral hypoglycemic drugs; Z85.038 Personal history of other malignant neoplasm of large intestine
CPT/HCPCS: 43239; 45380; 88305; 88342; J2704; J7040 ×2

== ENCOUNTER 2018-06-07 20:45 | Emergency (ER) | payer MEDICARE, BC ==
[2018-06-07 21:39] VITALS: BMI 23.8
[2018-06-07 22:08] VITALS: TEMP 98
--- NOTE | 2018-06-07 22:12 | ED PDOC ---
Arrival/HPI - General Chief Complaint: Abdominal Pain Time Seen by Provider: 06/07/18 21:14 Historian: Patient - History of Present Illness Narrative History of Present Illness (Text): 06/07/18 22:12 Carlee Meyer is a 73 year old female, whose past medical history includes diabetes, hypothyroidism, colon cancer s/p right hemicolectomy, , diverticulitis, and an appendectomy, who presents to the emergency department complaining of abdominal cramps. Patient states she has been experiencing intermittent abdominal discomfort for the past few days. Patient notes she had some vomiting a few days prior. Patient notes she was recently placed on a 5-day course of antibiotics for bronchitis, which she has not completed yet. Patient denies any fever, chills, chest pain, shortness of breath, urinary symptoms, back pain, neck pain, headache, dizziness, or any other complaints. Symptom Onset: Gradual Symptom Course: Unchanged Activities at Onset: Light Context: Home Past Medical History - Provider Review Nursing Documentation Reviewed: Yes - Infectious Disease Hx of Infectious Diseases: None - Cardiac Hx Pacemaker: No - Pulmonary Hx Respiratory Disorders: No - Neurological Hx Paralysis: No - HEENT Hx HEENT Disorder: Yes Hx Cataracts: Yes - Renal Hx Renal Disorder: No - Endocrine/Metabolic Hx Diabetes Mellitus Type 1: Yes Hx Hypothyroidism: Yes - Hematological/Oncological Hx Blood Transfusions: Yes - Integumentary Hx Dermatological Disorder: No - Musculoskeletal/Rheumatological Hx Musculoskeletal Disorders: No - Gastrointestinal Hx Diverticulitis: Yes Other/Comment: Colon CA - Genitourinary/Gynecological Hx Genitourinary Disorders: Yes Hx Urinary Tract Infection: Yes - Psychiatric Hx Emotional Abuse: No Hx Physical Abuse: No Hx Substance Use: No - Surgical History Hx Appendectomy: Yes Hx Cholecystectomy: Yes Hx Joint Replacement: Yes (hip replacement) Other/Comment: Colonoscopy - Anesthesia Hx Anesthesia Reactions: No Hx Malignant Hyperthermia: No - Suicidal Assessment Feels Threatened In Home Enviroment: No Family/Social History - Physician Review Nursing Documentation Reviewed: Yes Family/Social History: Unknown Family HX Smoking Status: Light Smoker < 10 Cigarettes Daily Hx Alcohol Use: No Hx Substance Use: No Allergies/Home Meds Allergies/Adverse Reactions: Allergies moxifloxacin Allergy (Verified 06/07/18 21:55) HIVES PT DENIES ANAPHYLAXIS PREVIOUSLY NOTED Home Medications: Home Meds Medication Instructions Recorded Confirmed Levothyroxine Sodium 0.05 mg PO QAM 09/25/14 06/07/18 GlipiZIDE [Glucotrol] 10 mg PO BID 02/03/17 06/07/18 Insulin Detemir [Levemir] 15 unit SC HS 02/03/17 06/07/18 Cholecalciferol (Vitamin D3) 50,000 unit PO NOVA 04/06/17 06/07/18 [Vitamin D3] Omeprazole Magnesium [Prilosec Otc] 20 mg PO DAILY 04/14/17 06/07/18 Amoxicillin 500 mg PO Q12H 06/07/18 06/07/18 MetFORMIN [glucoPHAGE] 1,000 mg PO BID 06/07/18 06/07/18 Promethazine [Phenergan Syrup] 1 tsp PO QID 06/07/18 06/07/18 Review of Systems - Physician Review All systems were reviewed & negative as marked: Yes - Review of Systems Constitutional: Normal. absent: Fevers Eyes: Normal ENT: Normal Respiratory: Normal. absent: SOB, Cough Cardiovascular: Normal. absent: Chest Pain Gastrointestinal: Abdominal Pain, Diarrhea, Vomiting Genitourinary Female: Normal. absent: Dysuria, Frequency, Hematuria, Urine Output Changes Musculoskeletal: Normal. absent: Neck Pain Skin: Normal. absent: Rash Neurological: Normal. absent: Headache, Dizziness Endocrine: Normal Hemo/Lymphatic: Normal Psychiatric: Normal Physical Exam Vital Signs Reviewed: Yes Vital Signs Temp Pulse Resp BP Pulse Ox 06/07/18 22:07 98.0 F 78 18 145/89 96 Temperature: Afebrile Blood Pressure: Normal Pulse: Regular Respiratory Rate: Normal Appearance: Positive for: Well-Appearing, Non-Toxic, Comfortable Pain Distress: None Mental Status: Positive for: Alert and Oriented X 3 - Systems Exam Head: Present: Atraumatic, Normocephalic Pupils: Present: PERRL Extroacular Muscles: Present: EOMI Conjunctiva: Present: Normal Mouth: Present: Moist Mucous Membranes Neck: Present: Normal Range of Motion Respiratory/Chest: Present: Clear to Auscultation, Good Air Exchange. No: Respiratory Distress, Accessory Muscle Use Cardiovascular: Present: Regular Rate and Rhythm, Normal S1, S2. No: Murmurs Abdomen: No: Tenderness, Distention, Peritoneal Signs Back: Present: Normal Inspection Upper Extremity: Present: Normal Inspection. No: Cyanosis, Edema Lower Extremity: Present: Normal Inspection. No: Edema Neurological: Present: GCS=15, CN II-XII Intact, Speech Normal Skin: Present: Warm, Dry, Normal Color. No: Rashes Psychiatric: Present: Alert, Oriented x 3, Normal Insight, Normal Concentration Medical Decision Making ED Course and Treatment: 06/07/18 22:12 Impression: 73 year old female complaining of intermittent abdominal discomfort for the past few days. Plan: -- CT Abdomen and Pelvis -- EKG -- Chest X-Ray -- Labs, lipase -- IV fluids -- Pepcid -- Toradol -- Reassess and disposition Prior Visits: Notes and results from previous visits were reviewed. Progress Notes: Reviewed EKG, NSR at 75 bpm T wave inversion inferiorly and anterolaterally. Unchanged from previous EKG on 06/25/2017. 06/08/18 01:00 CT Abdomen and Pelvis Impression: 1. Gastric wall thickening involving the fundus, suspicious for gastritis. 2. Mild enteritis of the jejunum 3. No evidence of bowel obstruction. Sigmoid diverticulosis without diverticulitis. 4. Moderate artherosclerosis of the abdominal aorta. No evidence of aneurysm or dissection. 5. Moderate spondylosis of the lumbosacral spine. - Lab Interpretations I have reviewed the lab results: Yes - RAD Interpretation Colon Therapist: Radiologist - EKG Interpretation Interpreted by ED Physician: Yes Type: 12 lead EKG - Scribe Statement The provider has reviewed the documentation as recorded by the Scribe Sue Vargas All medical record entries made by the Scribe were at my direction and personally dictated by me. I have reviewed the chart and agree that the record accurately reflects my personal performance of the history, physical exam, medical decision making, and the department course for this patient. I have also personally directed, reviewed, and agree with the discharge instructions and disposition. Disposition/Present on Arrival - Present on Arrival Any Indicators Present on Arrival: No History of DVT/PE: No History of Uncontrolled Diabetes: No Urinary Catheter: No History of Decub. Ulcer: No History Surgical Site Infection Following: None - Disposition Have Diagnosis and Disposition been Completed?: Yes Diagnosis: Gastroenteritis Disposition: HOME/ ROUTINE Disposition Time: 02:35 Patient Plan: Discharge Patient Problems: Current Active Problems Problem Status Onset Gastroenteritis Acute Condition: STABLE Discharge Instructions (ExitCare): Gastroenteritis (ED) Additional Instructions: Take meds as prescribed/follow up with your doctor this week/any worsening symptoms return to the emergency room Prescriptions: Phenobarb/Hyoscy/Atropine/Scop [ Tablet] 16.2 mg PO Q6 PRN #12 tablet PRN Reason: Dyspepsia Forms: [employer] ([place])
[2018-06-07] MEDS ORDERED: Sodium Chloride 0.9% 1,000 ML IV STA (22:17)
[2018-06-07 22:51] LABS: HEMOGLOBIN 13.9 g/dL (12.0-16.0); MEAN CELL VOLUME 87.9 fl (80.0-105.0); MEAN PLATELET VOLUME 10.1 fl (7.0-11.0); RBC 4.79 10^6/uL (3.5-6.1); RED CELL DISTRIBUTION WIDTH 13.6 % (11.5-14.5); WHITE BLOOD COUNT 10.2 10^3/ul (4.5-11.0)
[2018-06-07 23:03] LABS: ALB/GLOB RATIO 1.2 (1.1-1.8); ALBUMIN 4.1 g/dL (3.0-4.8); ALT/SGPT 72 U/L (7-56); AST/SGOT 115 U/L (14-36); BLOOD UREA NITROGEN 19 mg/dL (7-21); CALCIUM 9.9 mg/dL (8.4-10.5); GFR NON-AFRICAN AMERICAN > 60; LIPASE 150 U/L (23-300)
[2018-06-07] MEDS ORDERED: Iohexol 300 100 ML IJ ONE (23:15)
[2018-06-08 02:11] VITALS: BP 155/89; PULSE 72; RESP 15; O2SAT 98
--- NOTE | 2018-06-08 08:16 | RAD ---
Date of service: 06/07/2018 PROCEDURE: CHEST RADIOGRAPH, 1 VIEW HISTORY: abdominal pain COMPARISON: 06/02/2018 FINDINGS: LUNGS: Clear. PLEURA: No pneumothorax or pleural fluid seen. CARDIOVASCULAR: Normal. OSSEOUS STRUCTURES: No significant abnormalities. VISUALIZED UPPER ABDOMEN: Normal. OTHER FINDINGS: None. IMPRESSION: No active disease.
--- NOTE | 2018-06-08 10:08 | CT ---
Date of service: 06/07/2018 PROCEDURE: CT Abdomen and Pelvis with contrast HISTORY: Abdominal pain COMPARISON: 02/03/2017. TECHNIQUE: CT scan of the abdomen and pelvis was performed after administration of intravenous contrast. Oral contrast was not administered. Coronal and sagittal reformatted images were obtained. Contrast dose: 100 mL Omnipaque 350 Radiation dose: Total exam DLP = 313.49 mGy-cm. This CT exam was performed using one or more of the following dose reduction techniques: Automated exposure control, adjustment of the mA and/or kV according to patient size, and/or use of iterative reconstruction technique. FINDINGS: LOWER THORAX: The visualized lungs are clear. LIVER: Mild hepatomegaly and hepatic steatosis. No gross lesion or ductal dilatation. GALLBLADDER AND BILE DUCTS: Surgically absent. PANCREAS: Normal in size and mild atrophy. No gross lesion or ductal dilatation. SPLEEN: Normal in size and appearance. ADRENALS: No discrete nodule. KIDNEYS AND URETERS: Normal in size with homogeneous enhancement. No hydronephrosis. No solid mass. VASCULATURE: Atherosclerotic aortoiliac calcifications. No aortic aneurysm. BOWEL: Status post right hemicolectomy and ileotransverse anastomosis. There is mild dilatation of fluid-filled colon. The small bowel loops are normal in caliber. No evidence of bowel obstruction. There is scattered left colonic diverticulosis without CT evidence for acute diverticulitis. PERITONEUM: No free fluid. No free air. LYMPH NODES: No enlarged lymph nodes. BLADDER: Grossly normal in appearance. REPRODUCTIVE: Normal in size for the patient's age. BONES: No acute fracture. Status post left hip arthroplasty. OTHER FINDINGS: None. IMPRESSION: Status post right hemicolectomy and ileotransverse anastomosis. Mild dilatation of fluid-filled colon is nonspecific and could be related to nonspecific colitis. No evidence of bowel obstruction. Mild hepatomegaly and hepatic steatosis. A preliminary report was provided by [employer].
--- NOTE | 2018-06-08 11:26 | CARD ---
APPROVED REPORT Date of service: 06/07/2018 EKG Measurement Heart [id number] <Conclusion> Normal sinus rhythm T wave abnormality, consider inferior ischemia T wave abnormality, consider anterolateral ischemia Prolonged QT Abnormal ECG
== END 2018-06-08 02:46 | disposition home or self-care (01) ==
LOC: ED 20:45
DX: K52.9 Noninfective gastroenteritis and colitis, unspecified (principal); E11.9 Type 2 diabetes mellitus without complications; Z85.038 Personal history of other malignant neoplasm of large intestine; Z90.49 Acquired absence of other specified parts of digestive tract
CPT/HCPCS: 71045; 74177; 80053; 83690; 85027; 93005; 96361; 96374; 96375; 99283; J1885; J7030; Q9967

== ENCOUNTER 2019-01-06 14:48 | Outpatient (CLI) | payer MEDICARE, BC | END 2019-01-06 14:49 | disposition home or self-care (01) | LOC: LAB 14:48 ==